=== PATIENT | male | born 2000 | race Caucasian/White ===

== ENCOUNTER 2023-11-14 02:02 | Emergency (ER) | payer MEDICARE, OTHER, SELFPAY ==
[2023-11-14 02:25] VITALS: BP 134/88
--- NOTE | 2023-11-14 03:54 | ED.GENMED ---
History of Present Illness
<TURNER Brock - Last Filed: 11/14/23 06:08>
General
Chief Complaint: Headache
Source: patient
Exam Limitations: none
Time Seen by Provider: 11/14/23 03:33
Nursing documentation reviewed up to this point in time: agreed with
Travel History
Have you had any contact with someone who has COVID-19?: No
Do you have any symptoms of coronavirus? Fever > 100 degrees, chills, cough, shortness of breath, sore throat, loss of taste or smell, muscle aches, or headache?: No
History of Present Illness
History of Present Illness:
This is a 23 YOM with PMHx of asthma, POTS, anxiety with panic attacks presenting for neurological sensation changes and dizziness. Pt mentioned episodes of nonpainful 'zapping' sensations at the occiput over the past 3 days. Pt mentioned dizziness
comes along with these episodes, which last for a few seconds. Pt mentioned the dizziness has been more persistent today along with facial numbness sensation. Denied any near syncope, syncope, trauma. Pt also mentioned R sided head pressure,
sensitivity to light. Pt denied PMHx of headaches or migraines. Pt denied KAUR, vision changes, ear/eye/nose/throat pain, chest pain, SOB, N/V/D/C, MSK weakness. PE significant for NIH stroke scale of 0.
If applicable-neuro sx onset
Onset of symptoms known: Yes
Date of onset of symptoms: 11/11/23
Time of onset of symptoms: 08:00
Time pt last seen normal is known: Yes
Date last time pt seen normal: 11/11/23
Time last time pt seen normal: 08:00
Past History
<TURNER Brock - Last Filed: 11/14/23 06:08>
Past History
ED Past Medical History: Arrthythmia (palpitations, PVCs), Asthma, Psychiatric (Anxiety) and Other (WPW, POTS)
ED Past Surgical History: Urological (Undescended testicle, )
Social History
Tobacco: Vaping
Alcohol: None
Drug: None
Personal: Single
Living: with family
Employment: Employed
Family History
Family History: Other (anxiety)
Review of Systems
<TURNER Brock - Last Filed: 11/14/23 06:08>
Review of Systems
Allergies reviewed?: Yes
All Other Systems: ROS reviewed and negative except as documented in HPI and ROS
Constitutional: Reports no symptoms
EENT: Reports no symptoms
Respiratory: Reports no symptoms
Cardiac: Reports no symptoms
ABD/GI: Reports no symptoms
: Reports no symptoms
Musculoskeletal: Reports no symptoms
Skin: Reports no symptoms
Neurological: Reports dizzy and numbness
Hematologic/Lymphatic: Reports no symptoms
Psychiatric: Reports no symptoms
Phy Exam
<TURNER Brock - Last Filed: 11/14/23 06:08>
General Physical Exam
General Presentation: well appearing
General age: appears stated age
General Skin: warm and dry
General Habitus: normal
General Mental: alert
General Hydration: appears well hydrated
ENT Exam
ENT Exam: EOMI, TM's normal and neck supple
Eye Exam
Eye Exam: PERRL and EOMI
Cardiovascular Exam
Cardiovascular Exam: regular rate/rhythm
Pulmonary Exam
Pulmonary Exam: lungs clear, no respiratory distress, no rales, no crackles, no rhonchi, no stridor, no wheezing and no cough
Gastrointestinal Exam
Gastrointestinal Exam: normal bowel sounds, non tender, soft, no pulsatile mass, non distended and no masses
Neurological Exam
Neurological Exam: alert, oriented x3, no motor deficits, no sensory deficits, speech normal and normal gait
NIH Stroke Score
Level of Consciousness: 0 - Alert
LOC questions: 0-Answers both correctly
LOC Commands: 0-Performs both correctly
Best Gaze: 0-Normal
Visual Celaya: 0=Normal, no visual loss
Facial palsy: 0=Normal, symmetrical
Motor - Right Arm: 0=No drift 10 seconds
Motor - Left Arm: 0=No drift 10 seconds
Motor - Right Le-No drift 5 seconds
Motor - Left Le-No drift 5 seconds
Limb Ataxia: 0-Absent
Sensation: 0-Normal
Best Language: 0-No aphasia
Dysarthria: 0-Normal
Extinction and Inattention: 0-No abnormality
Total Score:: 0
Skin Exam
Skin Exam: normal color and warm/dry
Psychiatric Exam
Psychiatric Exam: anxious
<Zenon Chance, - Last Filed: 11/14/23 04:45>
NIH Stroke Score
Total Score:: 0
Course
<TURNER Brock - Last Filed: 11/14/23 06:08>
Vital Signs
Initial and Last Documented VS:
Initial Vital Signs
Temp Pulse Resp BP Pulse Ox
97.5 F 85 15 134/88 97
11/14/23 02:25 11/14/23 02:25 11/14/23 02:25 11/14/23 02:25 11/14/23 02:25
Last Documented Vital Signs
Temp Pulse Resp BP Pulse Ox
97.5 F 85 15 134/88 97
11/14/23 02:25 11/14/23 02:25 11/14/23 02:25 11/14/23 02:25 11/14/23 02:25
<Zenon Chance DO - Last Filed: 11/14/23 04:45>
Vital Signs
Initial and Last Documented VS:
Initial Vital Signs
Temp Pulse Resp BP Pulse Ox
97.5 F 85 15 134/88 97
11/14/23 02:25 11/14/23 02:25 11/14/23 02:25 11/14/23 02:25 11/14/23 02:25
Last Documented Vital Signs
Temp Pulse Resp BP Pulse Ox
97.5 F 85 15 134/88 97
11/14/23 02:25 11/14/23 02:25 11/14/23 02:25 11/14/23 02:25 11/14/23 02:25
<TURNER Brock - Last Filed: 11/14/23 06:08>
MDM/Problems Addressed
Differential Diagnosis Includes:
CVA/TIA, trigeminal neuralgia, migraine, anxiety
MDM/Problems Addressed:
23 YOM presenting with neurosensory change and dizziness
Chronic conditions affecting care:
Anxiety
Acute Exacerbation and/or Progression of Chronic Illness:
Anxiety
<TURNER Brock - Last Filed: 11/14/23 06:08>
*Critical Care Note
Total Time (30-74mins, 75-104mins- exclusive of procedures): Not Applicable
ED Attending Note
<TURNER Brock - Last Filed: 11/14/23 06:08>
-
Portions of this chart may have been created with voice recognition software.� Occasional wrong word or��sound alike� substitutions may have occurred due to the inherent limitations of voice recognition software.
<Zenon Chance DO - Last Filed: 11/14/23 04:45>
ED Attending Note
Patient seen and examined by attending physician: Yes
I performed the substantive portion of visit, reviewed & personally made and approve the management plan that is documented in note by myself or JENNIFER.: Yes
I performed a history and physical exam of patient and discussed management with resident, I reviewed resident's note and agree with documented findings and plan of care.: Yes
ED Attending Note:
I have reviewed and agree with history and treatment plan by Chanel Maier. My exam reveals nontoxic well-appearing 23-year-old.
Physical Exam
General: no apparent distress, not acutely ill
Neck: supple. no meningeal signs. normal posterior pharynx
Heart: s1/s2 regular rate and rhythm, no murmur. equal radial
pulses.
HEENT: Pupils equal round reactive to light, EOMI
Lungs: no acute respiratory distress. clear bilaterally
Abdomen: normal bowel sounds. not tender. no CVAT
Neuro: alert and oriented. no focal neurological deficits cranial nerves II through XII intact
Skin: no rash
Psychiatric: well kept. interactive and cooperative
Extremities: no edema. no calf tenderness. negative homans. good distal pulses
No neurologic deficits. Do not suspect intracranial hemorrhage or tumor. Possible migraine versus tension headache. Stable for discharge. Will treat with Tylenol or ibuprofen.
Discharge Plan
Departure
Patient Disposition: Home (Routine Discharge)
Date of Disposition: 11/14/23
Time of Disposition: 04:44
Patient with high blood pressure during this ER visit?: Yes
Condition: Good
Discharge Problem:
Headache
Instructions: Headache, Adult (DC), BLOOD PRESSURE
Prescriptions:
No Action
No Current Medications
0
Referrals:
Chinmay Lovett PA-C [Family Provider] - Call in 1-3 days for appt
Interventions
Interventions:
*Risk Screen - Suicide Last Done: 11/14/23 02:25
*General Assessment Last Done: 11/14/23 02:25
*Neglect/Abuse Screening Last Done: 11/14/23 02:25
ED- Fall Risk Assessment Last Done: 11/14/23 02:25
*ED COVID-19 Vaccine History Last Done: 11/14/23 02:25
*Nursing Disposition Last Done: 11/14/23 05:13
Discharge Date and Time
Discharge Date/Time: 11/14/23 05:14
== END 2023-11-14 05:14 | disposition home or self-care (01) ==
LOC: EMR 02:02
PROVIDERS: EMERGENCY PHYSICIAN Emergency Medicine; FAMILY PHYSICIAN Physician Assistant
DX: R51.9 Headache, unspecified (principal); J45.909 Unspecified asthma, uncomplicated; G90.A Postural orthostatic tachycardia syndrome [POTS]; I45.6 Pre-excitation syndrome; F41.9 Anxiety disorder, unspecified; F17.290 Nicotine dependence, other tobacco product, uncomplicated
CPT/HCPCS: 99282

== ENCOUNTER 2023-11-27 20:47 | Emergency (ER) | payer MEDICARE, OTHER, SELFPAY ==
[2023-11-27 21:02] VITALS: BP 120/75
[2023-11-27 23:05] LABS: % Basophils 0.3 % (0-2); % Eosinophils 2.4 % (0-6); % Immature Granulocytes 0.3 % (0-0.5); % Lymphocytes 13.1 % (20.5-51.1); % Neutrophils 77.9 % (42.2-75.2); Absolute Eosinophils 0.3 10^3/uL (0-0.7); Absolute Lymphocytes 1.6 10^3/uL (1.2-3.4); Absolute Monocytes 0.7 10^3/uL (0.1-0.6); Absolute Neutrophils 9.3 10^3/uL (1.4-6.5); Hematocrit 42.3 % (39.0-52.0); Hemoglobin 14.8 g/dL (13.0-18.0); Mean Corpuscular Hgb 30.5 pg (27.0-31.0); Nucleated Red Blood Cells % 0 % (-); Platelet Count 241 10^3/uL (130-400); Red Blood Cell Count 4.86 10^6/uL (4.70-6.10); Red Cell Dist. Width 12.6 % (11.5-14.5); White Blood Cell Count 11.9 10^3/uL (4.8-10.8)
--- NOTE | 2023-11-27 23:14 | ED.GENMED ---
History of Present Illness
General
Chief Complaint: Cardiac Symptoms
Source: patient
Exam Limitations: none
Time Seen by Provider: 11/27/23 22:47
Travel History
Have you had any contact with someone who has COVID-19?: No
Do you have any symptoms of coronavirus? Fever > 100 degrees, chills, cough, shortness of breath, sore throat, loss of taste or smell, muscle aches, or headache?: No
History of Present Illness
History of Present Illness:
23-year-old male complaining of palpitations heart pounding episodes of tightness and shortness of breath. Has been an intermittent issue for a long time. Admits to anxiety history.
Past History
Past History
ED Past Medical History: Arrthythmia (palpitations, PVCs), Asthma, Psychiatric (Anxiety) and Other (WPW, POTS)
ED Past Surgical History: Urological (Undescended testicle, )
Social History
Tobacco: Vaping
Alcohol: None
Drug: None
Personal: Single
Living: with family
Employment: Employed
Family History
Family History: Other (anxiety)
Review of Systems
Review of Systems
All Other Systems: Not applicable
Constitutional: Denies fever
ABD/GI: Reports no symptoms
Phy Exam
Physical Exam
Physical Exam:
GENERAL: Alert and oriented in no apparent distress
EYE: Orbits normal.
NECK: Supple, no thyroid palpable
ENT: Pharynx without erythema
CARDIAC: Regular rate and rhythm without any obvious murmurs.
LUNGS: Clear breath sounds,normal
ABDOMEN: Soft, without focal tenderness or distention
NEUROLOGICAL: Alert and oriented , grossly non-focal
SKIN: Warm and dry, no rash or lesion, no discoloration, skin intact.
MUSCULOSKELETAL: No edema,no deformity.Good color
PSYCH: Normal and appropriate interaction.
Course
Orders/Labs/Results
Orders:
Orders
11/27/23 20:57
Electrocardiogram (*1) Urgent
Reason for Study: Tachycardia
EKG- Treatment ONCE
11/27/23 22:54
CXR2 [CR Chest - 2 Views ] Urgent
Comment:
Reason For Exam: cp
11/27/23 22:56
Basic Metabolic Panel Urgent
Complete Blood Count/With Diff Urgent
D-Dimer Urgent
TSH Reflex To Free T4 Urgent
Troponin I Urgent
Abnormal Lab Results
11/27/23
22:56
WBC 11.9 H 10^3/uL
(4.8-10.8)
Absolute Neuts (auto) 9.3 H 10^3/uL
(1.4-6.5)
Absolute Monos (auto) 0.7 H 10^3/uL
(0.1-0.6)
Neutrophils % 77.9 H %
(42.2-75.2)
Lymphocytes % 13.1 L %
(20.5-51.1)
11/27/23 22:56
11/27/23 22:56
Vital Signs
Initial and Last Documented VS:
Initial Vital Signs
Temp Pulse Resp BP Pulse Ox
98.1 F 73 18 120/75 98
11/27/23 21:02 11/27/23 21:02 11/27/23 21:02 11/27/23 21:02 11/27/23 21:02
Last Documented Vital Signs
Temp Pulse Resp BP Pulse Ox
98.1 F 71 18 121/74 100
11/27/23 21:02 11/27/23 23:57 11/27/23 23:57 11/27/23 23:57 11/27/23 23:57
*Radiology
Radiology exam reviewed: preliminary read by ED provider (Negative)
*Pulse Oximetry
Patient hypoxic: no
*EKG
Interpreted by ED Provider?: Yes
Interpretation: normal
Comparison EKG: no changes
Heart Rate: 71
Rate: normal
Rhythm: sinus
Milligan: normal axis
Interval: short ID
QRS Pattern: normal QRS
Ischemia: no ischemia
*Critical Care Note
Total Time (30-74mins, 75-104mins- exclusive of procedures): Not Applicable
Update Note
Update Note:
No serious etiology for patient's symptoms. Medically stable and nontoxic. Discharged to follow-up
ED Attending Note
-
Portions of this chart may have been created with voice recognition software.� Occasional wrong word or��sound alike� substitutions may have occurred due to the inherent limitations of voice recognition software.
Discharge Plan
Departure
Patient Disposition: Home (Routine Discharge)
Date of Disposition: 11/28/23
Time of Disposition: 00:11
Patient with high blood pressure during this ER visit?: Yes
Discharge Problem:
Chest pain/palpitations, Dyspnea
Instructions: Chest Pain (DC), Palpitations (DC), Shortness of Breath, Adult ED, BLOOD PRESSURE
Prescriptions:
No Action
No Current Medications
0
Referrals:
Chinmay Lovett PA-C [Family Provider] - Follow up in 2-3 days
Interventions
Interventions:
*Risk Screen - Suicide Last Done: 11/27/23 21:02
*General Assessment Last Done: 11/27/23 21:02
*Neglect/Abuse Screening Last Done: 11/27/23 21:02
*ED COVID-19 Vaccine History Last Done: 11/27/23 21:02
ED- Cardiac Assessment Last Done: 11/27/23 21:41
ED- Pulmonary Assessment Last Done: 11/27/23 21:41
[2023-11-27 23:18] LABS: D-Dimer < 0.27 ug/mlFEU (0.00-0.50)
[2023-11-27 23:21] LABS: Blood Urea Nitrogen 14 mg/dl (9-20); Calcium 9.6 mg/dl (8.4-10.2); Carbon Dioxide 23 mmol/L (22-30); Chloride 104 mmol/L (98-107); Glucose 93 mg/dl (70-99); Potassium 3.6 mmol/L (3.5-5.1); Sodium 135 mmol/L (135-145); eGFR > 60.00
[2023-11-27 23:28] LABS: Troponin I < 0.012 ng/ml
[2023-11-27 23:49] LABS: TSH Reflex To Free T4 1.65 uIU/ml (0.47-4.68)
[2023-11-27 23:57] VITALS: BP 121/74
== END 2023-11-28 00:21 | disposition home or self-care (01) ==
LOC: EMR 20:47
PROVIDERS: EMERGENCY PHYSICIAN Emergency Medicine; FAMILY PHYSICIAN Physician Assistant
DX: R07.89 Other chest pain (principal); R00.2 Palpitations; R06.00 Dyspnea, unspecified; R03.0 Elevated blood-pressure reading, without diagnosis of hypertension; J45.909 Unspecified asthma, uncomplicated; F41.9 Anxiety disorder, unspecified; G90.A Postural orthostatic tachycardia syndrome [POTS]; I45.6 Pre-excitation syndrome; F17.290 Nicotine dependence, other tobacco product, uncomplicated
CPT/HCPCS: 99283; 71046; 80048; 84443; 84484; 85025; 85379; 93005

== ENCOUNTER 2024-01-06 18:17 | Emergency (ER) | payer MEDICARE, OTHER, SELFPAY ==
[2024-01-06 18:20] VITALS: BP 152/102
--- NOTE | 2024-01-06 19:21 | ED.GENMED ---
History of Present Illness
General
Chief Complaint: Heart Rate Problem
Source: patient and records
Exam Limitations: none
Time Seen by Provider: 01/06/24 19:04
Nursing documentation reviewed up to this point in time: agreed with
Travel History
Have you had any contact with someone who has COVID-19?: No
Do you have any symptoms of coronavirus? Fever > 100 degrees, chills, cough, shortness of breath, sore throat, loss of taste or smell, muscle aches, or headache?: No
History of Present Illness
History of Present Illness:
23-year-old male history of anxiety previously on therapy not currently nondrinker non-smoker used to vape, he is a student
Last night he was up late playing video games with his brother slept little bit woke up today with palpitations pain into his left arm frequent urination feeling of anxiety and panic which has had before
Past History
Past History
ED Past Medical History: Arrthythmia (palpitations, PVCs), Asthma, Psychiatric (Anxiety) and Other (WPW, POTS)
ED Past Surgical History: Urological (Undescended testicle, )
Social History
Tobacco: Non-smoker
Alcohol: None
Drug: None
Personal: Single
Living: with family
Employment: Student
Family History
Family History: Other (anxiety); Negative Sudden
Review of Systems
Review of Systems
All Other Systems: Not applicable
Constitutional: Denies fever or fatigue
EENT: Reports no symptoms
Respiratory: Reports no symptoms
Cardiac: Reports chest pain and palpitations
ABD/GI: Reports no symptoms
: Reports no symptoms
Neurological: Reports dizzy
Endocrine: Reports polyuria
Psychiatric: Reports anxiety; Denies hallucinations
Phy Exam
Physical Exam
Physical Exam:
Physical Exam
General: 23-year-old male anxious somewhat pressured speech
Neck: Lips are slightly dry
Heart: Tachycardic
Lungs: no acute respiratory distress. clear bilaterally
Abdomen: Not
Neuro: alert and oriented. no focal neurological deficits
Skin: no rash
Psychiatric: Anxious cooperative
Extremities: no edema.
Course
Orders/Labs/Results
Orders:
Orders
01/06/24 18:23
EKG [Electrocardiogram (*1)] Urgent
Reason for Study: Tachycardia
EKG- Treatment ONCE
01/06/24 19:20
Cardiac Monitoring- Treatment ONCE
0.9% Sodium Chloride 1000 ml [Nss] 1,000 ml IV BOLUS
Lorazepam [Ativan] 1 mg PO NOW STA
01/06/24 20:47
Complete Blood Count/With Diff Urgent
Comprehensive Metabolic Panel Urgent
Magnesium Urgent
TSH Urgent
Troponin I Urgent
Abnormal Lab Results
01/06/24
20:47
WBC 15.4 H 10^3/uL
(4.8-10.8)
Abs Immat Gran (auto) 0.1 H 10^3/uL
(0-0.05)
Absolute Neuts (auto) 12.2 H 10^3/uL
(1.4-6.5)
Absolute Monos (auto) 0.9 H 10^3/uL
(0.1-0.6)
Absolute Eos (auto) 0.8 H 10^3/uL
(0-0.7)
Neutrophils % 79.1 H %
(42.2-75.2)
Lymphocytes % 9.2 L %
(20.5-51.1)
Total Protein 8.3 H g/dl
(6.3-8.2)
01/06/24 20:47
01/06/24 20:47
Vital Signs
Initial and Last Documented VS:
Initial Vital Signs
Temp Pulse Resp BP Pulse Ox
98.3 F 126 18 152/102 99
01/06/24 18:20 01/06/24 18:20 01/06/24 18:20 01/06/24 18:20 01/06/24 18:20
Last Documented Vital Signs
Temp Pulse Resp BP Pulse Ox
98.3 F 99 22 130/90 98
01/06/24 18:20 01/06/24 22:00 01/06/24 22:00 01/06/24 22:00 01/06/24 21:30
MDM/Problems Addressed
Differential Diagnosis Includes:
Anxiety panic electrolyte abnormality doubt ACS doubt PE or dissection
MDM/Problems Addressed:
Anxiety chest pain arm pain frequent urination
Chronic conditions affecting care:
Anxiety
Acute Exacerbation and/or Progression of Chronic Illness:
Anxiety
*Pulse Oximetry
Patient hypoxic: no
*EKG
Interpreted by ED Provider?: Yes
Interpretation: abnormal
Comparison EKG: no comparison EKG present
Heart Rate: 108
Rate: tachycardiac
Rhythm: sinus
Ischemia: non-specific ST changes
*Access Clinician Interpretation
Rate: normal
Interpretation: normal
Heart Rate: 98
Rhythm: sinus
*Critical Care Note
Total Time (30-74mins, 75-104mins- exclusive of procedures): Not Applicable
Update Note
Update Note:
Update multiple complaints fairly anxious no chronic medical conditions was up all night playing video games, will hydrate check electrolytes provide reassurance small dose of benzodiazepine
Update 10:15 AM patient resting comfortably vital signs of normalized labs are noted
ED Attending Note
-
Portions of this chart may have been created with voice recognition software.� Occasional wrong word or��sound alike� substitutions may have occurred due to the inherent limitations of voice recognition software.
Discharge Plan
Departure
Patient Disposition: Home (Routine Discharge)
Date of Disposition: 01/06/24
Time of Disposition: 22:12
Patient with high blood pressure during this ER visit?: No
Condition: Good
Discharge Problem:
Anxiety, Heart palpitations
Instructions: Palpitations (DC)
Prescriptions:
No Action
No Current Medications
0
Referrals:
UNKNOWN - PT DOES,NOT KNOW [Family Provider] -
Interventions
Interventions:
*Risk Screen - Suicide Last Done: 01/06/24 18:20
*General Assessment Last Done: 01/06/24 18:20
*Neglect/Abuse Screening Last Done: 01/06/24 18:20
ED- Fall Risk Assessment Last Done: 01/06/24 20:58
*ED COVID-19 Vaccine History Last Done: 01/06/24 18:20
ED- Cardiac Assessment Last Done: 01/06/24 20:58
ED- Pulmonary Assessment Last Done: 01/06/24 20:58
[2024-01-06] MEDS: ATIVAN 1 MG PO (20:22)
[2024-01-06] MEDS: NSS 1000 IV (20:22)
[2024-01-06 20:52] VITALS: BP 131/80
[2024-01-06 21:00] VITALS: BP 138/77
[2024-01-06 21:14] LABS: % Basophils 0.5 % (0-2); % Eosinophils 4.9 % (0-6); % Immature Granulocytes 0.3 % (0-0.5); % Lymphocytes 9.2 % (20.5-51.1); % Neutrophils 79.1 % (42.2-75.2); Absolute Basophils 0.1 10^3/uL (0-0.2); Absolute Eosinophils 0.8 10^3/uL (0-0.7); Absolute Immature Granulocytes 0.1 10^3/uL (0-0.05); Absolute Lymphocytes 1.4 10^3/uL (1.2-3.4); Absolute Monocytes 0.9 10^3/uL (0.1-0.6); Absolute Neutrophils 12.2 10^3/uL (1.4-6.5); Hematocrit 50.2 % (39.0-52.0); Hemoglobin 16.8 g/dL (13.0-18.0); Mean Corp Hgb Conc. 33.5 g/dL (33.0-37.0); Mean Corpuscular Hgb 30.1 pg (27.0-31.0); Mean Corpuscular Volume 89.8 fL (80.0-94.0); Mean Platelet Volume 9.1 fL (7.4-10.4); Nucleated Red Blood Cells % 0 % (-); Platelet Count 243 10^3/uL (130-400); Red Blood Cell Count 5.59 10^6/uL (4.70-6.10); Red Cell Dist. Width 12.5 % (11.5-14.5); White Blood Cell Count 15.4 10^3/uL (4.8-10.8)
[2024-01-06 21:29] LABS: ALT (SGPT) 35 U/L (0-50); AST (SGOT) 27 U/L (17-59); Alkaline Phosphatase 83 U/L (38-126); Blood Urea Nitrogen 14 mg/dl (9-20); Calcium 10.2 mg/dl (8.4-10.2); Carbon Dioxide 23 mmol/L (22-30); Chloride 101 mmol/L (98-107); Estimated Creatinine Clearance > 125 ml/min; Glucose 93 mg/dl (70-99); Potassium 4.3 mmol/L (3.5-5.1); Sodium 136 mmol/L (135-145); Total Bilirubin 0.7 mg/dl (0.2-1.3); Total Protein 8.3 g/dl (6.3-8.2); eGFR > 60.00
[2024-01-06 21:42] LABS: Troponin I < 0.012 ng/ml
[2024-01-06 22:00] VITALS: BP 130/90
== END 2024-01-07 01:17 | disposition home or self-care (01) ==
LOC: EMR 18:17
PROVIDERS: EMERGENCY PHYSICIAN Emergency Medicine
DX: F41.9 Anxiety disorder, unspecified (principal); R00.2 Palpitations; I49.3 Ventricular premature depolarization; J45.909 Unspecified asthma, uncomplicated; I45.6 Pre-excitation syndrome; G90.A Postural orthostatic tachycardia syndrome [POTS]
CPT/HCPCS: 99283; 96360; 80053; 83735; 84443; 84484; 85025; 93005

== ENCOUNTER 2024-04-07 | Emergency (ER) | payer MEDICARE, OTHER, SELFPAY ==
[2024-04-07] VITALS: BMI 21.6
[2024-04-07 00:04] VITALS: BP 135/90
--- NOTE | 2024-04-07 00:12 | ED.GENMED ---
History of Present Illness
General
Chief Complaint: Cardiac Symptoms
Source: patient
Exam Limitations: none
Time Seen by Provider: 04/07/24 00:01
Travel History
Have you had any contact with someone who has COVID-19?: No
Do you have any symptoms of coronavirus? Fever > 100 degrees, chills, cough, shortness of breath, sore throat, loss of taste or smell, muscle aches, or headache?: No
History of Present Illness
History of Present Illness:
This is a 23 year old male that is brought in by ambulance with c/o increased heart rate and funny felling in his throat. States that this has happened 2 times today. Tonight he started with this funny feeling in his throat and it was like a
palpitation. States that he felt this on the left sided of the throat and his chest. States that his watch said his heart rate was 150. States that this only lasted for seconds. States that he then got anxious and then it happened again and lasted
for about 30 second. States that his abd muscle also feel tight. Denies any fever, chills, chest pain, SOB, nausea, vomiting, diarrhea, headache, dizziness, urinary burning.
Past History
Past History
ED Past Medical History: Arrthythmia (palpitations, PVCs, Tachycardia), Asthma, Psychiatric (Anxiety) and Other ( POTS)
ED Past Surgical History: Urological (Undescended testicle, )
Social History
Tobacco: Non-smoker (Vap in the past)
Alcohol: None
Drug: None
Personal: Single
Living: with family
Employment: Student
Family History
Family History: Other (anxiety); Negative Sudden
Review of Systems
Review of Systems
All Other Systems: ROS reviewed and negative except as documented in HPI and ROS
Constitutional: Reports no symptoms; Denies fever or chills
EENT: Reports no symptoms
Respiratory: Reports no symptoms; Denies cough or trouble breathing
Cardiac: Reports palpitations; Denies chest pain
ABD/GI: Reports no symptoms; Denies abdominal pain, nausea, vomiting or diarrhea
: Reports no symptoms; Denies dysuria, frequency or urgency
Musculoskeletal: Reports no symptoms
Skin: Reports no symptoms
Neurological: Reports no symptoms; Denies dizzy or headache
Psychiatric: Reports no symptoms
Phy Exam
General Physical Exam
General Presentation: well appearing and no apparent distress
General age: appears stated age
General Skin: warm and dry
General Habitus: normal
General Mental: anxious
General Hydration: appears well hydrated
ENT Exam
ENT Exam: TM's normal, pharynx normal and neck supple
Eye Exam
Eye Exam: EOMI
Cardiovascular Exam
Cardiovascular Exam: regular rate/rhythm, no edema, no murmur and normal peripheral pulses
Pulmonary Exam
Pulmonary Exam: lungs clear, no respiratory distress, no rales, chest non tender, no crackles, no rhonchi, no wheezing and no cough
Gastrointestinal Exam
Gastrointestinal Exam: normal bowel sounds, non tender, no organomegaly, no pulsatile mass and non distended
Musculoskeletal Exam
Musculoskeletal Exam: full ROM and no edema
Skin Exam
Skin Exam: normal color, warm/dry, no rash and no petechia
Psychiatric Exam
Psychiatric Exam: anxious
Course
Orders/Labs/Results
Orders:
Orders
04/07/24 00:10
EKG [Electrocardiogram (*1)] Urgent
Reason for Study: Palpitations
EKG- Treatment ONCE
04/07/24 00:19
Complete Blood Count/With Diff Urgent
Comprehensive Metabolic Panel Urgent
Troponin I Urgent
Abnormal Lab Results
04/07/24
00:19
Abs Immat Gran (auto) 0.2 H 10^3/uL
(0-0.05)
Absolute Monos (auto) 0.9 H 10^3/uL
(0.1-0.6)
Absolute Eos (auto) 1.6 H 10^3/uL
(0-0.7)
Immature Gran % 1.6 H %
(0-0.5)
Eosinophils % 15.0 H %
(0-6)
Carbon Dioxide 20 L mmol/L
(22-30)
04/07/24 00:19
04/07/24 00:19
Carbon dioxide slightly elevated. troponin <0.012
Vital Signs
Initial and Last Documented VS:
Initial Vital Signs
Temp Pulse Resp BP Pulse Ox
99.0 F 89 20 135/90 99
04/07/24 00:04 04/07/24 00:04 04/07/24 00:04 04/07/24 00:04 04/07/24 00:04
Last Documented Vital Signs
Temp Pulse Resp BP Pulse Ox
99.0 F 89 20 135/90 99
04/07/24 00:04 04/07/24 00:04 04/07/24 00:04 04/07/24 00:04 04/07/24 00:04
MDM/Problems Addressed
Differential Diagnosis Includes:
Anxiety, Tachycardia,
MDM/Problems Addressed:
This is a 23 year old male that comes in with c/o this funny feeling in his throat like palpitations and on the left chest area. States that this happened twic and the first was about 2 second and the second time it lasted for about 30 seconds.
Will get labs, ECG and monitor.
Back into see patient. Patient heart rate was 88 on the monitor. Explained that his blood work is normal and his ECG is unchanged. Patient to increase his water intake to 8-8oz glasses daily. Follow up with the Compensation Expert for further evaluation.
Patient to increase his water intake to 8-8oz glasses daily. Return with any concerns.
Chronic conditions affecting care: Psychiatric illness (Anxiety) and Other (Tachycardia)
Acute Exacerbation and/or Progression of Chronic Illness: Psychiatric illness (Anxiety)
*Pulse Oximetry
Patient hypoxic: no
*EKG
Interpreted by ED Provider?: Yes
Heart Rate: 91
Rate: normal
Rhythm: sinus
Beverly: normal axis
Interval: normal interval
QRS Pattern: normal QRS
Ischemia: T-wave inversion (III, aVR, aVF, Checked by Dr. Galarza)
*Lead Man Over All Dies In Pattern [employer] Interpretation
Rate: normal
Interpretation: normal
Heart Rate: 94
Rhythm: sinus
*Critical Care Note
Total Time (30-74mins, 75-104mins- exclusive of procedures): Not Applicable
ED Attending Note
-
Portions of this chart may have been created with voice recognition software.� Occasional wrong word or��sound alike� substitutions may have occurred due to the inherent limitations of voice recognition software.
Discharge Plan
Departure
Patient Disposition: Home (Routine Discharge)
Date of Disposition: 04/07/24
Time of Disposition: 01:05
Patient with high blood pressure during this ER visit?: Yes
Condition: Good
Covid-19: Not Applicable
Discharge Problem:
Tachycardia, Anxiety
Instructions: Tachycardia, Anxiety, Adult ED, BLOOD PRESSURE
Prescriptions:
No Action
No Current Medications
0
Referrals:
Tom Kruse, DO [Active] - Call in 1-3 days for appt
PRIVATE,PHYSICIAN [Family Provider] -
Activity Restrictions/Additional Instructions:
As discussed, your blood work is normal and you have been in a nice normal Rhythm. Please increase your water intake to 8-8oz glasses daily. Follow up with your Compensation Expert for further evaluation. IF YOU HAVE CHEST PAIN, OR INCREASED HEART RATE
THAT LAST ANY LENGTH OF TIME, PLEASE RETURN TO THE EMERGENCY ROOM.
Interventions
Interventions:
*Risk Screen - Suicide Last Done: 04/07/24 00:04
*General Assessment Last Done: 04/07/24 00:04
*Neglect/Abuse Screening Last Done: 04/07/24 00:04
Discharge Date and Time
Print Language: MALAYSIAN
[2024-04-07 00:39] LABS: % Basophils 0.9 % (0-2); % Immature Granulocytes 1.6 % (0-0.5); % Lymphocytes 26.4 % (20.5-51.1); % Monocytes 8.4 % (1.7-9.3); % Neutrophils 47.7 % (42.2-75.2); Absolute Basophils 0.1 10^3/uL (0-0.2); Absolute Eosinophils 1.6 10^3/uL (0-0.7); Absolute Immature Granulocytes 0.2 10^3/uL (0-0.05); Absolute Lymphocytes 2.8 10^3/uL (1.2-3.4); Absolute Monocytes 0.9 10^3/uL (0.1-0.6); Hematocrit 43.9 % (39.0-52.0); Hemoglobin 14.9 g/dL (13.0-18.0); Mean Corp Hgb Conc. 33.9 g/dL (33.0-37.0); Mean Corpuscular Hgb 29.9 pg (27.0-31.0); Mean Corpuscular Volume 88.2 fL (80.0-94.0); Mean Platelet Volume 9.1 fL (7.4-10.4); Nucleated Red Blood Cells % 0 % (-); Platelet Count 253 10^3/uL (130-400); Red Blood Cell Count 4.98 10^6/uL (4.70-6.10); Red Cell Dist. Width 12.4 % (11.5-14.5); White Blood Cell Count 10.6 10^3/uL (4.8-10.8)
[2024-04-07 00:49] LABS: Troponin I < 0.012 ng/ml
[2024-04-07 00:52] LABS: ALT (SGPT) 40 U/L (0-50); AST (SGOT) 29 U/L (17-59); Albumin 4.5 g/dl (3.5-5.0); Alkaline Phosphatase 72 U/L (38-126); Blood Urea Nitrogen 14 mg/dl (9-20); Calcium 9.5 mg/dl (8.4-10.2); Carbon Dioxide 20 mmol/L (22-30); Chloride 104 mmol/L (98-107); Estimated Creatinine Clearance > 125 ml/min; Glucose 97 mg/dl (70-99); Potassium 3.6 mmol/L (3.5-5.1); Sodium 136 mmol/L (135-145); Total Bilirubin 0.7 mg/dl (0.2-1.3); Total Protein 7.3 g/dl (6.3-8.2); eGFR > 60.00
== END 2024-04-07 01:56 | disposition home or self-care (01) ==
LOC: EMR
PROVIDERS: Clinical Nurse Specialist Family Health; EMERGENCY PHYSICIAN Emergency Medicine
DX: R00.0 Tachycardia, unspecified (principal); F41.9 Anxiety disorder, unspecified; R00.2 Palpitations; R79.89 Other specified abnormal findings of blood chemistry; I49.3 Ventricular premature depolarization; J45.909 Unspecified asthma, uncomplicated; G90.A Postural orthostatic tachycardia syndrome [POTS]
CPT/HCPCS: 99283; 80053; 84484; 85025; 93005

== ENCOUNTER 2024-07-22 19:21 | Emergency (ER) | payer MEDICARE, OTHER, SELFPAY ==
[2024-07-22 19:23] VITALS: BP 138/97
[2024-07-22 19:53] LABS: Hematocrit 46.9 % (39.0-52.0); Hemoglobin 16.2 g/dL (13.0-18.0); Mean Corp Hgb Conc. 34.5 g/dL (33.0-37.0); Mean Corpuscular Hgb 29.3 pg (27.0-31.0); Mean Corpuscular Volume 84.8 fL (80.0-94.0); Mean Platelet Volume 9.1 fL (7.4-10.4); Platelet Count 248 10^3/uL (130-400); Red Blood Cell Count 5.53 10^6/uL (4.70-6.10); Red Cell Dist. Width 12.9 % (11.5-14.5); White Blood Cell Count 10.9 10^3/uL (4.8-10.8)
[2024-07-22 20:11] LABS: ALT (SGPT) 24 U/L (0-50); AST (SGOT) 25 U/L (17-59); Albumin 4.9 g/dl (3.5-5.0); Alkaline Phosphatase 75 U/L (38-126); Blood Urea Nitrogen 14 mg/dl (9-20); Calcium 10.2 mg/dl (8.4-10.2); Carbon Dioxide 24 mmol/L (22-30); Chloride 102 mmol/L (98-107); Glucose 95 mg/dl (70-99); Potassium 4.3 mmol/L (3.5-5.1); Sodium 140 mmol/L (135-145); Total Bilirubin 0.8 mg/dl (0.2-1.3); Total Protein 7.7 g/dl (6.3-8.2); eGFR > 60.00
[2024-07-22 20:16] LABS: % Basophils 1.2 % (0-2); % Immature Granulocytes 0.3 % (0-0.5); % Lymphocytes 19.4 % (20.5-51.1); % Monocytes 6.5 % (1.7-9.3); % Neutrophils 43.6 % (42.2-75.2); Absolute Basophils 0.1 10^3/uL (0-0.2); Absolute Eosinophils 3.2 10^3/uL (0-0.7); Absolute Lymphocytes 2.1 10^3/uL (1.2-3.4); Absolute Monocytes 0.7 10^3/uL (0.1-0.6); Absolute Neutrophils 4.8 10^3/uL (1.4-6.5); Nucleated Red Blood Cells % 0 % (-)
[2024-07-22 20:22] LABS: Troponin I < 0.012 ng/ml
[2024-07-22 21:17] VITALS: BP 133/87
--- NOTE | 2024-07-22 21:36 | ED.GENMED ---
History of Present Illness
General
Chief Complaint: Chest Pain
Source: patient
Time Seen by Provider: 07/22/24 21:21
History of Present Illness
History of Present Illness:
24yoM with a history of POTS and anxiety presenting for evaluation of chest pain. Patient initially started with chest discomfort yesterday. He reports a central chest tightness and a sharp stabbing pain in his left arm. The pain initially
resolved and he was able to go to sleep. He was in the shower this afternoon when he had a recurrence of his chest tightness. He tried relaxation techniques without any improvement so decided to come to the ED. Symptoms resolved while in the
waiting room. He believes his symptoms were related to an anxiety attack as he has a history of this. He is currently asymptomatic and denies any shortness of breath.
Past History
Past History
ED Past Medical History: Arrthythmia (palpitations, PVCs, Tachycardia), Asthma, Psychiatric (Anxiety) and Other ( POTS)
ED Past Surgical History: Urological (Undescended testicle, )
Social History
Tobacco: Non-smoker (Vap in the past)
Alcohol: None
Drug: None
Personal: Single
Living: with family
Employment: Student
Family History
Family History: Other (anxiety); Negative Sudden
Phy Exam
General Physical Exam
General Presentation: well appearing and no apparent distress
General age: appears stated age
General Skin: warm and dry
General Habitus: normal
General Mental: alert
ENT Exam
ENT Exam: normocephalic
Cardiovascular Exam
Cardiovascular Exam: regular rate/rhythm and no murmur
Pulmonary Exam
Pulmonary Exam: lungs clear, no respiratory distress, no rales, no crackles, no rhonchi and no wheezing
Neurological Exam
Neurological Exam: alert
[place] Coma Scale
Eye Opening: Spontaneous
Verbal Response: Oriented
Motor Response: Obeys Commands
GCS Total Score: 15
Skin Exam
Skin Exam: normal color and warm/dry
Scores
Heart Score for Chest Pain Patients
STEMI patient?: No
History: Slightly or Non-Suspicious
ECG: Nonspecific Repolarization
Age: </= 45 years
Risk Factors: No Risk Factors
Troponin: </= Normal Limit
Heart Score for Chest Pain Patients: 1
Heart Score Risk: 2.5% MACE over next 6 weeks
Course
Orders/Labs/Results
Orders:
Orders
07/22/24 19:26
Electrocardiogram (*1) Urgent
Reason for Study: Chest Pain
EKG- Treatment ONCE
07/22/24 19:42
Complete Blood Count/With Diff Urgent
Comprehensive Metabolic Panel Urgent
Troponin I Urgent
Abnormal Lab Results
07/22/24
19:42
WBC 10.9 H 10^3/uL
(4.8-10.8)
Absolute Monos (auto) 0.7 H 10^3/uL
(0.1-0.6)
Absolute Eos (auto) 3.2 H 10^3/uL
(0-0.7)
Lymphocytes % 19.4 L %
(20.5-51.1)
Eosinophils % 29.0 H %
(0-6)
07/22/24 19:42
07/22/24 19:42
Vital Signs
Initial and Last Documented VS:
Initial Vital Signs
Temp Pulse Resp BP Pulse Ox
98 F 94 16 138/97 99
07/22/24 19:23 07/22/24 19:23 07/22/24 19:23 07/22/24 19:23 07/22/24 19:23
Last Documented Vital Signs
Temp Pulse Resp BP Pulse Ox
98 F 72 16 114/74 97
07/22/24 19:23 07/22/24 22:00 07/22/24 22:00 07/22/24 22:00 07/22/24 22:00
MDM/Problems Addressed
Differential Diagnosis Includes:
24yoM here with chest tightness that began while in the shower this afternoon. Symptoms now resolved. Multiple prior ED visits for the same. He is afebrile and hemodynamically stable. He is well-appearing in no distress. Exam is reassuring.
Differential diagnosis includes but is not limited to: Arrhythmia, anxiety, doubt ACS
Lab work obtained in triage. Troponin within normal limits. EKG shows normal sinus rhythm with nonspecific T wave changes. EKG unchanged from prior. HEART score is 1 and patient currently asymptomatic. He is stable for discharge. He was advised
to follow-up with his PCP and public records researcher. ED return precautions discussed. Patient discharged in stable condition.
*EKG
Interpreted by ED Provider?: Yes
EKG Intrepretation Date: 07/22/24
Heart Rate: 93
Rate: normal
Rhythm: sinus
[place]: normal axis
Interval: normal interval
QRS Pattern: normal QRS
Ischemia: other (Nonspecific T wave abnormality)
*Critical Care Note
Total Time (30-74mins, 75-104mins- exclusive of procedures): Not Applicable
ED Attending Note
-
Portions of this chart may have been created with voice recognition software.� Occasional wrong word or��sound alike� substitutions may have occurred due to the inherent limitations of voice recognition software.
Discharge Plan
Departure
Patient Disposition: Home (Routine Discharge)
Date of Disposition: 07/22/24
Time of Disposition: 21:38
Patient with high blood pressure during this ER visit?: No
Discharge Problem:
Chest pain
Instructions: Chest Pain PCP Follow Up
Prescriptions:
No Action
No Current Medications
0
Activity Restrictions/Additional Instructions:
Please follow-up with your family doctor and public records researcher. Return to the ER with any new or worsening symptoms.
Interventions
Interventions:
*Risk Screen - Suicide Last Done: 07/22/24 19:23
*General Assessment Last Done: 07/22/24 21:25
*Neglect/Abuse Screening Last Done: 07/22/24 21:25
ED- Fall Risk Assessment Last Done: 07/22/24 21:25
*ED COVID-19 Vaccine History Last Done: 07/22/24 21:25
*Nursing Disposition Last Done: 07/22/24 21:45
ED- Cardiac Assessment Last Done: 07/22/24 21:25
Discharge Date and Time
Discharge Date/Time: 07/22/24 21:45
Print Language: MEXICAN
[2024-07-22 22:00] VITALS: BP 114/74
== END 2024-07-22 21:45 | disposition home or self-care (01) ==
LOC: EMR 19:21
PROVIDERS: Student in an Organized Health Care Education/Training Program; EMERGENCY PHYSICIAN Emergency Medicine
DX: R07.89 Other chest pain (principal); G90.A Postural orthostatic tachycardia syndrome [POTS]; F41.9 Anxiety disorder, unspecified; J45.909 Unspecified asthma, uncomplicated
CPT/HCPCS: 99283; 80053; 84484; 85025; 93005

== ENCOUNTER 2024-09-07 21:59 | Emergency (ER) | payer MEDICARE, OTHER, SELFPAY ==
[2024-09-07 22:17] VITALS: BP 118/82
--- NOTE | 2024-09-07 23:31 | ED.GENMED ---
History of Present Illness
General
Chief Complaint: Chest Pain
Source: patient and previous hospital records (Innumerous previous ED visits for similar complaint, most recently 1-1/2 months ago.)
Exam Limitations: none
Time Seen by Provider: 09/07/24 23:10
Nursing documentation reviewed up to this point in time: agreed with
History of Present Illness
History of Present Illness:
This is a 24-year-old gentleman with longstanding history of anxiety, panic disorder along with frequent episodes of chest pain, palpitations. Follows with Dr. Terry and had been worked up for POTS but POTS was ruled out and thought to all be
related to anxiety.
He had been following with a therapist in the past with some success with his anxiety and intrusive thoughts of potential cardiac disease.
Over the past several months he admits that his anxiety has been somewhat better controlled and over the past month he began exercise, lifting weights at the gym on a daily basis with a friend of his.
Since beginning exercise he has been feeling improved, less feelings of tachycardia and admits to being generally asymptomatic while lifting weights.
He was lifting weights today and towards the end of his exercise did notice his heart rate was somewhat more elevated than it usually is but he admits to no chest pain or shortness of breath while exercising. Once he was finished exercise and
returned home however he felt that his heart rate was still somewhat elevated and with this admits to worry regarding his heart, concerned that he had overstressed his heart and with these intrusive thoughts he admits to then feeling some chest pain
on the right side and began to feel short of breath. He has had similar episodes of chest pain, palpitations, shortness of breath over a number of years with numerous ED visits here with numerous unremarkable cardiac as well as pulmonary
evaluations with normal laboratory studies, normal EKGs, negative troponins, negative D-dimers, unremarkable chest x-rays.
Most recent ED visit July 22 for similar complaint. Again unremarkable EKG, unremarkable laboratory studies.
He did suffer a URI 1 month ago with cough, congestion all of which has cleared except for mild intermittent lingering dry cough.
He denies leg pain or swelling.
And as above, he has been exercising, lifting weights without symptomatology while exercising.
He takes no medicines on a daily basis.
He denies alcohol or drug use. Prior nicotine/vaping which he has since discontinued.
Past History
Past History
ED Past Medical History: Arrthythmia (palpitations, PVCs, Tachycardia), Asthma and Psychiatric (Anxiety)
ED Past Surgical History: Urological (Undescended testicle, )
Social History
Tobacco: Former smoker (Vape in the past)
Alcohol: None
Drug: None
Personal: Single
Living: with family
Employment: Not employed
Family History
Family History: Other (anxiety); Negative Sudden
Phy Exam
Physical Exam
Physical Exam:
GENERAL: 24-year-old male appears his stated age. Awake and alert, pleasant, mildly anxious but easily communicative. Maintains eye contact.
EYE: pupils equal and reactive. anicteric
NECK: Supple, nontender, no meningismus, no significant adenopathy.
ENT: oral mucosa is moist. No rhinorrhea.
CARDIAC: Regular rate and rhythm. no murmur.
LUNGS: Clear breath sounds bilaterally, no acute respiratory distress, no wheezes/rales/rhonchi
ABDOMEN: Soft, nondistended, without focal tenderness, normoactive BS.
NEUROLOGICAL: Alert and oriented x3, no focal neuro deficits. Gait is mahoney and steady.
SKIN: Warm and dry, normal color, skin intact. No rash.
MUSCULOSKELETAL: No C/C/E. peripheral pulses are full and equal b/l. No palpable tenderness.
PSYCH: Mildly anxious. Fair insight and judgment.
Scores
Heart Score for Chest Pain Patients
STEMI patient?: Not applicable
Course
Orders/Labs/Results
Orders:
Orders
09/07/24 22:05
Electrocardiogram (*1) Urgent
Reason for Study: Chest Pain
EKG- Treatment ONCE
Vital Signs
Initial and Last Documented VS:
Initial Vital Signs
Temp Pulse Resp BP Pulse Ox
97.7 F 100 16 118/82 99
09/07/24 22:17 09/07/24 22:17 09/07/24 22:17 09/07/24 22:17 09/07/24 22:17
Last Documented Vital Signs
Temp Pulse Resp BP Pulse Ox
97.7 F 76 18 129/81 100
09/07/24 22:17 09/07/24 23:45 09/07/24 23:45 09/07/24 23:45 09/07/24 23:45
MDM/Problems Addressed
Differential Diagnosis Includes:
Concern for tacky arrhythmia, pneumonia, musculoskeletal chest wall pain, pleurisy. ACS, PE/thromboembolism are unlikely.
EKG is again unremarkable and unchanged from previous showing normal sinus rhythm, normal axis, normal intervals, no acute ST-T wave abnormalities.
Patient feeling markedly improved since arrival to the ED and admits to similar chest pain complaints most noted when he is sitting or lying quietly and admits to ongoing intrusive paranoid thoughts of potential cardiopulmonary disease.
Overall his symptoms have improved over the past month with initiation of exercise/weightlifting 1 month ago and I have encouraged him to continue regular exercise.
With multiple, repeated unremarkable cardiac as well as pulmonary evaluations over the past several years including 1 month ago, unremarkable EKG tonight, no indication to repeat studies at this point.
Lungs are clear to auscultation, normal pulse ox. Nothing to suggest pneumonia on exam and patient admits that cough has been improving, thus no indication for chest x-ray.
Patient has been encouraged to patient has been encouraged to follow-up with his pharmaceutical botanist, Dr. Terry and recommend follow-up with PCP as well.
I have also encouraged him to resume counseling, consider behavioral cognitive therapy to help with his anxieties, intrusive/paranoid thoughts. We did discuss medications, he elects to forego daily medication such as SSRIs etc. He had been
prescribed lorazepam in the past but admits to becoming somewhat dependent on this and elects to forego any further benzodiazepines.
Overall pretty good insight and judgment.
Follow-up with PCP and specialists as above.
Return precautions discussed.
Chronic conditions affecting care: Psychiatric illness
Acute Exacerbation and/or Progression of Chronic Illness: Psychiatric illness
*Pulse Oximetry
Patient hypoxic: no
*EKG
Interpreted by ED Provider?: Yes
Interpretation: normal
Comparison EKG: no changes (Unchanged from previous July 22, 2024)
Rate: normal
Rhythm: sinus
[place]: normal axis
Interval: normal interval
QRS Pattern: normal QRS
Ischemia: no ischemia
*Critical Care Note
Total Time (30-74mins, 75-104mins- exclusive of procedures): Not Applicable
ED Attending Note
-
Portions of this chart may have been created with voice recognition software.� Occasional wrong word or��sound alike� substitutions may have occurred due to the inherent limitations of voice recognition software.
Discharge Plan
Departure
Patient Disposition: Home (Routine Discharge)
Date of Disposition: 09/07/24
Time of Disposition: 23:31
Patient with high blood pressure during this ER visit?: No
Condition: Good
Discharge Problem:
Generalized anxiety disorder with panic attacks, Nonspecific chest pain
Instructions: Generalized anxiety disorder, Chest Pain That Is Not Caused by the Heart (DC)
Prescriptions:
No Action
No Current Medications
0
Referrals:
Tom Kruse, DO [Active] - Call in 1-3 days for appt
Interventions
Interventions:
*Risk Screen - Suicide Last Done: 09/07/24 22:17
*General Assessment Last Done: 09/07/24 22:17
*Neglect/Abuse Screening Last Done: 09/07/24 22:17
ED- Fall Risk Assessment Last Done: 09/07/24 23:46
*ED COVID-19 Vaccine History Last Done: 09/07/24 22:17
*Nursing Disposition Last Done: 09/07/24 23:46
ED- Cardiac Assessment Last Done: 09/07/24 23:40
Discharge Date and Time
Discharge Date/Time: 09/07/24 23:46
Print Language: [email or web address]
[2024-09-07 23:45] VITALS: BP 129/81
== END 2024-09-07 23:46 | disposition home or self-care (01) ==
LOC: EMR 21:59
PROVIDERS: EMERGENCY PHYSICIAN Emergency Medicine
DX: F41.1 Generalized anxiety disorder (principal); F41.0 Panic disorder [episodic paroxysmal anxiety]; R07.89 Other chest pain; F41.9 Anxiety disorder, unspecified; J45.909 Unspecified asthma, uncomplicated; Z87.891 Personal history of nicotine dependence
CPT/HCPCS: 99283; 93005

== ENCOUNTER 2025-01-09 05:16 | Emergency (ER) | payer MEDICARE, OTHER, SELFPAY ==
[2025-01-09 05:18] VITALS: BP 140/90
--- NOTE | 2025-01-09 05:38 | EDRN ---
Pt has asthma and says around age 17 or 18 he did not need medication. Pt was at his ex's house 'it's a zoo over there, 5 dogs, chickens, ferrets'. Pt says he played with the dogs. Pt felt sob when he got home and tried to go to sleep however he
felt he could not get enough air in and had wheezing which prompted ED visit. Little coughing, non productive. No fever/chills. Pt's chest feels tight. No n/v. Pt says this is what happens when he is around animals. Pt adds when he is at his
ex's house, they have an inhaler so he usually uses it but he did not feel it was necessary when he was finished playing with the dogs.
[2025-01-09 05:41] VITALS: BP 125/90
[2025-01-09] MEDS: DUONEB 3 ML INH (05:49)
[2025-01-09 06:00] VITALS: BP 132/88
--- NOTE | 2025-01-09 06:08 | EDRN ---
Pt says he feels much better after breathing tx 'I can breathe again, it's like night and day.'
--- NOTE | 2025-01-09 07:21 | ED.GENMED ---
History of Present Illness
General
Chief Complaint: Breathing Problem
Source: patient
Exam Limitations: none
Time Seen by Provider: 01/09/25 06:56
Nursing documentation reviewed up to this point in time: agreed with
History of Present Illness
History of Present Illness:
Patient with history of asthma, who has not required any treatment since he was a teenager, presents to ED secondary to what patient describes as 'asthma attack', after he was visiting his ex-girlfriend who has multiple dogs. Patient states that he
initially denied any symptoms, but shortly after returning home, he started to experience wheezing sensation. Patient does not have any inhalers at home. Denies fever or chills. Denies nausea or vomiting. Denies recent illness. Patient was
given nebulizer treatment upon arrival in ED, with significant improvement in symptoms.
Past History
Past History
ED Past Medical History: Arrthythmia (palpitations, PVCs, Tachycardia), Asthma and Psychiatric (Anxiety)
ED Past Surgical History: Urological (Undescended testicle, )
Social History
Tobacco: Former smoker (Vape in the past)
Alcohol: None
Drug: None
Personal: Single
Living: with family
Employment: Not employed
Family History
Family History: Other (anxiety); Negative Sudden
Review of Systems
Review of Systems
Allergies reviewed?: Yes
All Other Systems: ROS reviewed and negative except as documented in HPI and ROS
Constitutional: Reports no symptoms; Denies fever
EENT: Reports no symptoms
Respiratory: Reports trouble breathing; Denies cough
Cardiac: Reports no symptoms
ABD/GI: Reports no symptoms
Musculoskeletal: Reports no symptoms
Skin: Reports no symptoms
Neurological: Reports no symptoms
Phy Exam
Physical Exam
Physical Exam:
Physical Exam
General: no apparent distress, not acutely ill. afebrile
Head: nc/at. eomi
Neck: supple. normal range of motion. normal posterior pharynx
Heart: s1/s2 regular rate and rhythm, no murmur.
Lungs: no acute respiratory distress. clear bilaterally
Abdomen: normal bowel sounds. not tender.
Neuro: alert and oriented x 3. no focal neurological deficits
Skin: no rash
Psychiatric: well kept. interactive and cooperative
Extremities: no edema. no calf tenderness.
Course
Orders/Labs/Results
Orders:
Orders
01/09/25 05:47
Ipratropium/Albuterol Sulfate [Duoneb] 3 ml .ROUTE .STK-MED ONE
01/09/25 05:49
Ipratropium/Albuterol Sulfate [Duoneb] 3 ml INH R NOW ONE
01/09/25 07:32
Dexamethasone Pf [Decadron] 10 mg PO NOW STA
Vital Signs
Initial and Last Documented VS:
Initial Vital Signs
Temp Pulse Resp BP Pulse Ox
98.1 F 110 26 140/90 98
01/09/25 05:18 01/09/25 05:18 01/09/25 05:18 01/09/25 05:18 01/09/25 05:18
Last Documented Vital Signs
Temp Pulse Resp BP Pulse Ox
98.1 F 75 16 124/88 97
01/09/25 05:18 01/09/25 07:39 01/09/25 07:39 01/09/25 07:39 01/09/25 07:39
MDM/Problems Addressed
MDM/Problems Addressed:
History and exam consistent with likely an asthma flareup secondary to allergen exposure. Fortunately, with 1 nebulizer treatment provided in ED, patient with complete resolution of symptoms. As such, patient will be given 1 dose of Decadron along
with prescription for inhaler, with recommendation to follow-up with his primary care physician with consideration to see an allergy/surgical specialist as an outpatient.
*Critical Care Note
Total Time (30-74mins, 75-104mins- exclusive of procedures): Not Applicable
ED Attending Note
-
Portions of this chart may have been created with voice recognition software.� Occasional wrong word or��sound alike� substitutions may have occurred due to the inherent limitations of voice recognition software.
Discharge Plan
Departure
Patient Disposition: Home (Routine Discharge)
Date of Disposition: 01/09/25
Time of Disposition: 07:32
Patient with high blood pressure during this ER visit?: Yes
Condition: Good
Discharge Problem:
Asthma
Instructions: Asthma, Adult (DC)
Prescriptions:
New
albuterol sulfate [Ventolin HFA] 90 mcg/actuation HFA aerosol inhaler
2 puff inhalation Q6H PRN (Reason: shortness of breath or wheezing) Qty: 8.5 0RF
Referrals:
UNKNOWN - PT DOES,NOT KNOW [Family Provider] -
Activity Restrictions/Additional Instructions:
As discussed, please follow-up with your primary care physician for reevaluation. Your prescription has been sent electronically to [facility] pharmacy in [place].
Interventions
Interventions:
*Risk Screen - Suicide Last Done: 01/09/25 05:18
*General Assessment Last Done: 01/09/25 05:34
*Neglect/Abuse Screening Last Done: 01/09/25 05:18
*ED- Fall Risk Assessment Last Done: 01/09/25 06:08
*ED COVID-19 Vaccine History Last Done: 01/09/25 05:34
*Nursing Disposition Last Done: 01/09/25 07:39
ED- Cardiac Assessment Last Done: 01/09/25 05:43
ED- Pulmonary Assessment Last Done: 01/09/25 06:08
Discharge Date and Time
Discharge Date/Time: 01/09/25 07:45
Print Language: CHILEAN
[2025-01-09] MEDS: DECADRON 10 MG PO (07:37)
[2025-01-09 07:39] VITALS: BP 124/88
== END 2025-01-09 07:45 | disposition home or self-care (01) ==
LOC: EMR 05:16
PROVIDERS: EMERGENCY PHYSICIAN Emergency Medicine
DX: J45.909 Unspecified asthma, uncomplicated (principal); Z87.891 Personal history of nicotine dependence
CPT/HCPCS: 94640; 99283

== ENCOUNTER 2025-01-09 20:30 | Emergency (ER) | payer MEDICARE, OTHER, SELFPAY ==
[2025-01-09 20:35] VITALS: BP 122/85
[2025-01-09 21:12] LABS: % Basophils 0.1 % (0-2); % Eosinophils 0.3 % (0-6); % Immature Granulocytes 0.3 % (0-0.5); % Lymphocytes 9.8 % (20.5-51.1); % Neutrophils 87.5 % (42.2-75.2); Absolute Immature Granulocytes 0.1 10^3/uL (0-0.05); Absolute Lymphocytes 1.4 10^3/uL (1.2-3.4); Absolute Monocytes 0.3 10^3/uL (0.1-0.6); Absolute Neutrophils 12.9 10^3/uL (1.4-6.5); Hematocrit 43.3 % (39.0-52.0); Hemoglobin 14.9 g/dL (13.0-18.0); Mean Corp Hgb Conc. 34.4 g/dL (33.0-37.0); Mean Corpuscular Volume 87.3 fL (80.0-94.0); Mean Platelet Volume 9.7 fL (7.4-10.4); Nucleated Red Blood Cells % 0 % (-); Platelet Count 294 10^3/uL (130-400); Red Blood Cell Count 4.96 10^6/uL (4.70-6.10); Red Cell Dist. Width 13.4 % (11.5-14.5); White Blood Cell Count 14.7 10^3/uL (4.8-10.8)
[2025-01-09 21:26] LABS: ALT (SGPT) 28 U/L (0-50); AST (SGOT) 26 U/L (17-59); Albumin 4.6 g/dl (3.5-5.0); Alkaline Phosphatase 76 U/L (38-126); Blood Urea Nitrogen 17 mg/dl (9-20); Calcium 10.1 mg/dl (8.4-10.2); Carbon Dioxide 20 mmol/L (22-30); Chloride 104 mmol/L (98-107); Glucose 154 mg/dl (70-99); Sodium 139 mmol/L (135-145); Total Bilirubin 0.6 mg/dl (0.2-1.3); Total Protein 7.5 g/dl (6.3-8.2); eGFR > 60.00
[2025-01-09 21:34] LABS: Troponin I < 0.012 ng/ml
[2025-01-09 21:51] VITALS: BP 143/87
[2025-01-09 22:00] VITALS: BP 128/75
--- NOTE | 2025-01-09 22:47 | ED.GENMED ---
History of Present Illness
General
Chief Complaint: Heart Rate Problem
Time Seen by Provider: 01/09/25 22:10
History of Present Illness
History of Present Illness:
24-year-old male with history of anxiety presenting to the emergency department for concern of elevated heart rate. Patient reports that he came to the hospital earlier today because he was having allergic reaction to his friend's dog. He was
given albuterol and Decadron. He notes that he initially felt better. However, later into this evening, noted that his heart rate was elevated which was making him more anxious. He is unsure whether or not it is from the steroid. Denies chest
pain or difficulty breathing. Denies abdominal pain or GI symptoms denies fever. Does admit to being very anxious. Denies any rash. Denies additional acute medical complaints
Past History
Past History
ED Past Medical History: Arrthythmia (palpitations, PVCs, Tachycardia), Asthma and Psychiatric (Anxiety)
ED Past Surgical History: Urological (Undescended testicle, )
Social History
Tobacco: Former smoker (Vape in the past)
Alcohol: None
Drug: None
Personal: Single
Living: with family
Employment: Not employed
Family History
Family History: Other (anxiety); Negative Sudden
Phy Exam
Physical Exam
Physical Exam:
General: Well-appearing, no clinical signs of dehydration, nontoxic and in no acute distress
HEENT: protecting airway
Neck: appears supple
CV: tachycardic, regular rhythm
Resp: No accessory muscle use, no increased work of breathing
Abd: Soft and non-distended, no tenderness to palpation
Extremities: No deformities, no swelling
Neuro: alert, no focal neurologic deficit
: deferred
Rectal: deferred
Psych: Normal affect
Skin: Intact
Course
Orders/Labs/Results
Orders:
Orders
01/09/25 20:41
Electrocardiogram (*1) Urgent
Reason for Study: Chest Pain
Cardiac Monitoring- Treatment ONCE
EKG- Treatment ONCE
IV Insert/Care/Rem.- Treatment PRN
O2 Therapy [RESP] Urgent
Titrate/Wean O2 to maintain O2 sat greater than (%): 90
Special Instructions: Maintain sats >/=90%
Pulse Ox/spot Check [RESP] Urgent
Quantity: 1
Special Instructions: ON ROOM AIR
01/09/25 20:54
Troponin I Urgent
01/09/25 20:55
Complete Blood Count/With Diff Urgent
Comprehensive Metabolic Panel Urgent
01/09/25 22:40
Lorazepam [Ativan] 1 mg PO NOW STA
Abnormal Lab Results
01/09/25
20:55
WBC 14.7 H 10^3/uL
(4.8-10.8)
Abs Immat Gran (auto) 0.1 H 10^3/uL
(0-0.05)
Absolute Neuts (auto) 12.9 H 10^3/uL
(1.4-6.5)
Neutrophils % 87.5 H %
(42.2-75.2)
Lymphocytes % 9.8 L %
(20.5-51.1)
Carbon Dioxide 20 L mmol/L
(22-30)
Glucose 154 H mg/dl
(70-99)
01/09/25 20:55
01/09/25 20:55
Vital Signs
Initial and Last Documented VS:
Initial Vital Signs
Temp Pulse Resp BP Pulse Ox
98.4 F 128 18 122/85 99
01/09/25 20:35 01/09/25 20:35 01/09/25 20:35 01/09/25 20:35 01/09/25 20:35
Last Documented Vital Signs
Temp Pulse Resp BP Pulse Ox
98.4 F 128 18 122/85 99
01/09/25 20:35 01/09/25 20:35 01/09/25 20:35 01/09/25 20:35 01/09/25 20:35
MDM/Problems Addressed
MDM/Problems Addressed:
24-year-old male with history of anxiety presenting for elevated heart rate. Vital signs significant for tachycardia.
On exam, patient is resting comfortably, no acute distress. Heart rate has improved upon arrival. Patient is concerned that he is having a reaction from the steroids. He may be having a side effect, however no evidence of acute allergic reaction.
No respiratory compromise, no GI symptoms, no systemic symptoms. Also suspect underlying anxiety contributing to patient's symptoms, has been seen and evaluated in this emergency department for anxiety in the past, on multiple occasions. Labs
obtained prior to my assessment, without acute abnormality. Resting Ativan. Will administer. Otherwise do feel stable for discharge with outpatient follow-up. Strict return precautions communicated and patient verbalized understanding
*EKG
Interpreted by ED Provider?: Yes
EKG Intrepretation Date: 01/09/25
EKG Intrepretation Time: 22:55
Interpretation: normal
Heart Rate: 139
Rate: tachycardiac
Rhythm: sinus
[place]: normal axis
Interval: normal interval
QRS Pattern: normal QRS
Ischemia: no ischemia
*Critical Care Note
Total Time (30-74mins, 75-104mins- exclusive of procedures): Not Applicable
ED Attending Note
-
Portions of this chart may have been created with voice recognition software.� Occasional wrong word or��sound alike� substitutions may have occurred due to the inherent limitations of voice recognition software.
Discharge Plan
Departure
Prescriptions:
No Action
albuterol sulfate [Ventolin HFA] 90 mcg/actuation HFA aerosol inhaler
2 puff inhalation Q6H PRN (Reason: shortness of breath or wheezing) Qty: 8.5 0RF
Referrals:
UNKNOWN - PT DOES,NOT KNOW [Family Provider] -
Interventions
Interventions:
*Risk Screen - Suicide Last Done: 01/09/25 20:35
*General Assessment Last Done: 01/09/25 20:35
*Neglect/Abuse Screening Last Done: 01/09/25 20:35
Discharge Date and Time
Print Language: [email or web address]
[2025-01-09 22:49] VITALS: BMI 22.8
[2025-01-09] MEDS: ATIVAN 1 MG PO (22:53)
[2025-01-09 23:47] VITALS: BP 125/74
== END 2025-01-09 23:58 | disposition home or self-care (01) ==
LOC: EMR 20:30
PROVIDERS: Student in an Organized Health Care Education/Training Program; EMERGENCY PHYSICIAN Student in an Organized Health Care Education/Training Program
DX: R00.0 Tachycardia, unspecified (principal); F41.9 Anxiety disorder, unspecified; J45.909 Unspecified asthma, uncomplicated; Z87.891 Personal history of nicotine dependence
CPT/HCPCS: 99284; 80053; 84484; 85025; 93005

== ENCOUNTER 2025-01-21 23:44 | Emergency (ER) | payer MEDICARE, OTHER, SELFPAY ==
[2025-01-21 23:46] VITALS: BP 130/92
[2025-01-22 01:12] VITALS: BMI 22.8
[2025-01-22 01:13] VITALS: BP 111/94
--- NOTE | 2025-01-22 02:34 | ED.GENMED ---
History of Present Illness
General
Chief Complaint: Anxiety
Source: patient
Exam Limitations: none
Time Seen by Provider: 01/22/25 01:52
Nursing documentation reviewed up to this point in time: agreed with
History of Present Illness
History of Present Illness:
Patient is a 24-year-old male presenting to the emergency department for evaluation of heart palpitations. Patient reports onset of palpitations yesterday evening which have persisted throughout today. He states they have been intermittent and
describes feeling as if his heart is racing associated with a tightness sensation in his chest and throat. There has been no exertional component to the symptoms. He denies any true chest pain or associated shortness of breath. No
lightheadedness, dizziness, or syncopal events. Patient denies any recent fever or cough.
He does also endorse feeling extremely anxious over the past few weeks and thinks it may be contributing to his symptoms today.
No recent travel or recent surgeries.
Past History
Past History
ED Past Medical History: Arrthythmia (palpitations, PVCs, Tachycardia), Asthma and Psychiatric (Anxiety)
ED Past Surgical History: Urological (Undescended testicle, )
Social History
Tobacco: Former smoker (Vape in the past)
Alcohol: None
Drug: None
Personal: Single
Living: with family
Employment: Not employed
Family History
Family History: Other (anxiety); Negative Sudden
Review of Systems
Review of Systems
Allergies reviewed?: Yes
All Other Systems: ROS reviewed and negative except as documented in HPI and ROS
Phy Exam
Physical Exam
Physical Exam:
Vitals: Mildly hypertensive, tachycardic. Afebrile
General: Patient is anxious appearing
Skin: Warm and dry, no rashes or lesions
Head: Normocephalic, atraumatic
Eyes: Sclera nonicteric. EOMs intact. No nystagmus.
Throat: Protecting airway
Neck: Normal ROM, no cervical spine tenderness, no meningismus
Cardiac: Tachycardic, normal rhythm, no murmurs.
Pulm: Normal respiratory effort, no wheezes, rales, rhonchi heard on exam.
Abdomen: No abdominal tenderness.
Extremities: No evidence of cyanosis or edema. Palpable DP pulses
Neuro: AAOx3. Grossly intact
Psychiatric: Anxious.
Course
Orders/Labs/Results
Orders:
Orders
01/21/25 23:48
EKG- Treatment ONCE
01/22/25
Electrocardiogram (*1) Stat
Reason for Study: Chest Pain
Comment: DONE NO ORDER ENTERED
01/22/25 02:24
CR Chest - 2 Views Urgent
Comment:
Reason For Exam: Palpitations, chest tightness
01/22/25 02:51
Complete Blood Count/With Diff Urgent
D-Dimer Urgent
TSH Reflex To Free T4 Urgent
Troponin I Urgent
01/22/25 03:43
Basic Metabolic Panel Urgent
Magnesium Urgent
Abnormal Lab Results
01/22/25 01/22/25
02:51 03:43
WBC 10.9 H 10^3/uL
(4.8-10.8)
Absolute Monos (auto) 0.9 H 10^3/uL
(0.1-0.6)
Absolute Eos (auto) 2.4 H 10^3/uL
(0-0.7)
Eosinophils % 22.2 H %
(0-6)
Chloride 109 H mmol/L
(98-107)
Glucose 117 H mg/dl
(70-99)
01/22/25 02:51
01/22/25 03:43
Vital Signs
Pulse: 82
Initial and Last Documented VS:
Initial Vital Signs
Temp Pulse Resp BP Pulse Ox
98 F 100 24 130/92 100
01/21/25 23:46 01/21/25 23:46 01/21/25 23:46 01/21/25 23:46 01/21/25 23:46
Last Documented Vital Signs
Temp Pulse Resp BP Pulse Ox
98 F 86 20 123/82 96
01/21/25 23:46 01/22/25 04:41 01/22/25 04:41 01/22/25 04:41 01/22/25 04:41
MDM/Problems Addressed
Differential Diagnosis Includes:
Not limited to: Panic attack, hyperthyroidism, cardiac arrhythmia, electrolyte imbalance, acute dehydration, pulmonary embolism, etc.
MDM/Problems Addressed:
24 year old male w/ 2 days of palpitations and chest tightness. He feels very anxious although denies SI/HI. No exertional or pleuritic component to symptoms or associated shortness of breath. Patient initially tachycardic on arrival although
improved without intervention. Otherwise vitals stable. EKG obtained in triage without any acute ischemic changes or arrythmia. Physical exam as above. Low suspicion for acute cardio/pulmonary process. I do suspect underlying anxiety. However - will
obtain labs, troponin, dimer, CXR.
Update: Labs without clinically significant abnormalities, including TSH. Both d-dimer and troponin undetectable. CXR without acute findings. Workup in emergency department negative. Patient has been on heart monitor without any evidence of
arrhythmia. Do not suspect ACS or PE or other emergent cardio/pulmonary process. Vitals have normalized and patient feels less anxious. Advised close f/u with PCP as he has had multiple recent visits for anxiety and would benefit from possible SSRI
or daily anxiolytic. He endorses hx of somewhat benzo dependency, will hold ativan for now as he is feeling better. He will f/u with cardiology regarding palpitations. Stable for discharge home w/ close return precautions.
Chronic conditions affecting care:
Anxiety
Acute Exacerbation and/or Progression of Chronic Illness:
N/A
*Radiology
Radiology exam reviewed: preliminary read by ED provider (CXR reviewed by me - no acute cardiopulmonary process)
*Pulse Oximetry
Patient hypoxic: no
*EKG
Interpreted by ED Provider?: Yes
EKG Intrepretation Date: 01/22/25
Interpretation: abnormal
Comparison EKG: changes noted
Heart Rate: 113
Rate: tachycardiac
Rhythm: sinus
Pedro: normal axis
Interval: normal QT interval
QRS Pattern: normal QRS
Ischemia: non-specific ST changes
*Weapons Designer Interpretation
Rate: normal
Interpretation: normal
Heart Rate: 94
Rhythm: sinus
*Critical Care Note
Total Time (30-74mins, 75-104mins- exclusive of procedures): Not Applicable
ED Attending Note
-
Portions of this chart may have been created with voice recognition software.� Occasional wrong word or��sound alike� substitutions may have occurred due to the inherent limitations of voice recognition software.
Discharge Plan
Departure
Patient Disposition: Home (Routine Discharge)
Date of Disposition: 01/22/25
Time of Disposition: 04:19
Patient with high blood pressure during this ER visit?: Yes
Condition: Good
Discharge Problem:
Palpitations, Anxiety
Instructions: Anxiety, Adult (DC), Palpitations (DC), BLOOD PRESSURE
Prescriptions:
No Action
albuterol sulfate [Ventolin HFA] 90 mcg/actuation HFA aerosol inhaler
2 puff inhalation Q6H PRN (Reason: shortness of breath or wheezing) Qty: 8.5 0RF
Referrals:
Tom Kruse DO [Active] - Call in 1-3 days for appt
Valente Harris DO [Family Provider] - Follow up in 2-3 days
Activity Restrictions/Additional Instructions:
Return to the emergency department any chest pain, shortness of breath, dizziness, thoughts of harming yourself, worsening in current symptoms, or any other concerns
- As discussed�your lab work, EKG, and chest x-ray were normal in the emergency department.
-It is important to stay well-hydrated and eat a balanced diet. Get plenty of rest.
- You should follow-up with your primary care for management of anxiety and possible initiation of medication.
- You should follow-up with your trader for further evaluation and management of your heart palpitations. If symptoms persist/you may need a Holter monitor.
Monitor your symptoms closely and return to the emergency department with any acute worsening/new symptoms or any other concerns
Interventions
Interventions:
*Risk Screen - Suicide Last Done: 01/21/25 23:46
*General Assessment Last Done: 01/22/25 03:30
*Neglect/Abuse Screening Last Done: 01/21/25 23:46
*ED- Fall Risk Assessment Last Done: 01/22/25 04:00
*ED COVID-19 Vaccine History Last Done: 01/22/25 01:12
*Nursing Disposition Last Done: 01/22/25 04:41
ED- Cardiac Assessment Last Done: 01/22/25 01:04
ED-Psychological Assessment Last Done: 01/22/25 01:11
ED- Pulmonary Assessment Last Done: 01/22/25 01:11
Discharge Date and Time
Discharge Date/Time: 01/22/25 04:42
Print Language: GHANAIAN
[2025-01-22 03:06] LABS: Hematocrit 42.7 % (39.0-52.0); Hemoglobin 14.6 g/dL (13.0-18.0); Mean Corp Hgb Conc. 34.2 g/dL (33.0-37.0); Mean Corpuscular Hgb 30.2 pg (27.0-31.0); Mean Corpuscular Volume 88.4 fL (80.0-94.0); Mean Platelet Volume 9.5 fL (7.4-10.4); Platelet Count 243 10^3/uL (130-400); Red Blood Cell Count 4.83 10^6/uL (4.70-6.10); Red Cell Dist. Width 13.2 % (11.5-14.5); White Blood Cell Count 10.9 10^3/uL (4.8-10.8)
[2025-01-22 03:13] LABS: D-Dimer < 0.27 ug/mlFEU (0.00-0.50)
[2025-01-22 03:23] LABS: % Basophils 0.9 % (0-2); % Eosinophils 22.2 % (0-6); % Immature Granulocytes 0.2 % (0-0.5); % Monocytes 8.6 % (1.7-9.3); % Neutrophils 45.1 % (42.2-75.2); Absolute Basophils 0.1 10^3/uL (0-0.2); Absolute Eosinophils 2.4 10^3/uL (0-0.7); Absolute Lymphocytes 2.5 10^3/uL (1.2-3.4); Absolute Monocytes 0.9 10^3/uL (0.1-0.6); Absolute Neutrophils 4.9 10^3/uL (1.4-6.5); Nucleated Red Blood Cells % 0 % (-)
[2025-01-22 03:25] LABS: Troponin I < 0.012 ng/ml
[2025-01-22 03:54] LABS: TSH Reflex To Free T4 2.49 uIU/ml (0.47-4.68)
[2025-01-22 04:00] VITALS: BP 123/82
[2025-01-22 04:17] LABS: Blood Urea Nitrogen 10 mg/dl (9-20); Calcium 9.2 mg/dl (8.4-10.2); Carbon Dioxide 25 mmol/L (22-30); Chloride 109 mmol/L (98-107); Estimated Creatinine Clearance > 125 ml/min; Glucose 117 mg/dl (70-99); Potassium 3.7 mmol/L (3.5-5.1); Sodium 141 mmol/L (135-145); eGFR > 60.00
[2025-01-22 04:41] VITALS: BP 123/82
== END 2025-01-22 04:42 | disposition home or self-care (01) ==
LOC: EMR 23:44
PROVIDERS: Physician Assistant; EMERGENCY PHYSICIAN Student in an Organized Health Care Education/Training Program; FAMILY PHYSICIAN Family Medicine
DX: R00.2 Palpitations (principal); F41.9 Anxiety disorder, unspecified; J45.909 Unspecified asthma, uncomplicated; Z87.891 Personal history of nicotine dependence
CPT/HCPCS: 99285; 71046; 80048; 83735; 84443; 84484; 85025; 85379; 93005

== ENCOUNTER 2025-05-01 21:25 | Emergency (ER) | payer MEDICARE, OTHER, SELFPAY ==
[2025-05-01 21:32] VITALS: BP 125/87
[2025-05-01 21:51] LABS: Hematocrit 41.8 % (39.0-52.0); Hemoglobin 14.0 g/dL (13.0-18.0); Mean Corp Hgb Conc. 33.5 g/dL (33.0-37.0); Mean Corpuscular Volume 88.4 fL (80.0-94.0); Nucleated Red Blood Cells % 0 % (-); Platelet Count 245 10^3/uL (130-400); Red Cell Dist. Width 12.9 % (11.5-14.5)
[2025-05-01 22:11] LABS: ALT (SGPT) 15 U/L (0-50); AST (SGOT) 19 U/L (17-59); Albumin 4.6 g/dl (3.5-5.0); Alkaline Phosphatase 56 U/L (38-126); Blood Urea Nitrogen 12 mg/dl (9-20); Calcium 9.6 mg/dl (8.4-10.2); Carbon Dioxide 27 mmol/L (22-30); Chloride 109 mmol/L (98-107); Glucose 99 mg/dl (70-99); Potassium 3.7 mmol/L (3.5-5.1); Sodium 142 mmol/L (135-145); Total Protein 7.3 g/dl (6.3-8.2); eGFR > 60.00
[2025-05-01 22:29] LABS: Troponin I < 0.012 ng/ml
== END 2025-05-01 23:50 | disposition left against medical advice (07) ==
LOC: EMR 21:25
PROVIDERS: EMERGENCY PHYSICIAN Emergency Medicine
DX: R07.9 Chest pain, unspecified (principal); Z53.21 Procedure and treatment not carried out due to patient leaving prior to being seen by health care provider
CPT/HCPCS: 80053; 84484; 85025; 93005